=== PATIENT | female | born 1960 | race Caucasian/White ===

== ENCOUNTER → 2019-08-20 | Day surgery (SDC) | payer MEDICARE, OTHER ==
[~2019-08-20] MED LIST: ACETAMINOPHEN 325 MG TABLET PO PRN; ALBUTEROL SULFATE 2.5 MG/3 ML NEBU. NEB PRN; ATROPINE 0.5 MG/5 ML DISP.SYRIN. IV PRN; CLOP75TA57 PO; IV RINGERS SOLUTION,LACTATED 1,000 ML IV SCH; LIDOCAINE 2% PF Vial for OR 5 ML VIAL. ONE; LISI-338 PO; MIDAZOLAM HCL PF 2 MG/2 ML VIAL. IV PRN; ONDANSETRON PF 4 MG/2 ML VIAL. IV PRN; PANT40TA5 PO; PHENOL ORAL SPRAY 177ML BOTTLE. MM PRN; PROPOFOL 20 ML IV ONE; SIMV40TA18 PO; diphenhydrAMINE 50 MG/ML VIAL IV PRN
[2019-08-20 12:11] VITALS: BP 138/93
--- NOTE | 2019-08-23 16:06 | PATHOLOGY ---
[facility] Accession Number: [id number] . 01 Material submitted: . stomach - ANTRUM . 01 Clinical history: . GERD . 02 Diagnosis: Gastric biopsies, antrum: - Mild chronic gastritis. LBQ 08/23/2019 1116 Local . 02 Comment: Sections of the gastric antral biopsy show congestion and very mild chronic inflammation. A properly controlled immunoperoxidase stain for Helicobacter is negative for Helicobacter organisms. There is no evidence of malignancy. (JPM/db; 08/23/2019) . Special stain performed: Immunoperoxidase stain for Helicobacter on A1 . 02 Electronically signed: . Bridger Flores MD, Pathologist NPI- [id number] . 01 Gross description: . Received in formalin labeled "[place], Loralie, antrum BX," are 2 segments of shabazz soft tissue measuring 0.8 x 0.2 x 0.1 cm in aggregate dimensions and ranging from 0.2 to 0.6 cm in maximum dimension. The specimen is submitted entirely in cassette A1. (TSD; 08/20/2019) TOB/TOB 08/20/2019 2225 Local . 02 Pathologist provided ICD-10: K29.50 . 02 CPT . 099106, [id number] Specimen Comment: A courtesy copy of this report has been sent to [phone] Specimen Comment: [phone] Specimen Comment: Report sent to / DR PRESSLEY Performed at: 01 [facility] [address], [place] [id number] MD Pranav Moore MD Phone: [phone] Performed at: 02 [facility] [address], [place] [id number] MD Bridger Flores MD Phone: [phone]
== END ==
LOC: SURG 10:34
PROVIDERS: ATTEND Internal Medicine Gastroenterology
DX: R10.11 Right upper quadrant pain (principal); K21.0 Gastro-esophageal reflux disease with esophagitis; K29.50 Unspecified chronic gastritis without bleeding; K29.01 Acute gastritis with bleeding; K44.9 Diaphragmatic hernia without obstruction or gangrene; I25.10 Atherosclerotic heart disease of native coronary artery without angina pectoris; Z98.890 Other specified postprocedural states
CPT/HCPCS: 43239; 88305; 88342; J2704; 45380; J2001

== ENCOUNTER → 2019-12-03 | Day surgery (SDC) | payer MEDICARE, OTHER ==
[~2019-12-03] MED LIST changes: -ACETAMINOPHEN 325 MG TABLET PO PRN; -ALBUTEROL SULFATE 2.5 MG/3 ML NEBU. NEB PRN; -ATROPINE 0.5 MG/5 ML DISP.SYRIN. IV PRN; +IPRATRPIUM/ALBUTEROL 0.5/2.5MG 3 ML NEBU. NEB PRN; -LIDOCAINE 2% PF Vial for OR 5 ML VIAL. ONE; -MIDAZOLAM HCL PF 2 MG/2 ML VIAL. IV PRN; -PHENOL ORAL SPRAY 177ML BOTTLE. MM PRN; -PROPOFOL 20 ML IV ONE; +PROPOFOL 40 ML IV ONE; -diphenhydrAMINE 50 MG/ML VIAL IV PRN
[2019-12-03 12:22] VITALS: BP 132/78
--- NOTE | 2019-12-06 13:07 | PATHOLOGY ---
[facility] Accession Number: [id number] . 01 Material submitted: . sigmoid colon - SIGMOID POLYP . 01 Clinical history: . None provided . 02 Diagnosis: Colon biopsies, sigmoid colon polyps: - Hyperplastic polyps (2). . (JPM:surekha; 12/06/2019) QMS 12/06/2019 0907 Local . 02 Comment: There are no adenomatous changes or evidence of malignancy. . 02 Electronically signed: . Bridger Flores MD, Pathologist NPI- [id number] . 01 Gross description: . The specimen is received in formalin, labeled "[place], Loralie, sigmoid polyps" and consists of 2 fragments of pink-shabazz tissue measuring 0.4 x 0.3 cm and 0.4 x 0.2 cm which are entirely submitted in A1. (SDY; 12/03/2019) SYU/SYU 12/03/2019 1909 Local . 02 Pathologist provided ICD-10: K63.5 . 02 CPT . 523845 Specimen Comment: A courtesy copy of this report has been sent to [phone] Specimen Comment: [phone] Specimen Comment: Report sent to / DR PRESSLEY Performed at: 01 [facility] [address], [place], [place] [id number] MD Pranav Moore MD Phone: [phone] Performed at: 02 [facility] [address] [place], [place] [id number] MD Bridger Flores MD Phone: [phone]
== END ==
LOC: SURG 09:25
PROVIDERS: ATTEND Internal Medicine Gastroenterology
DX: Z12.11 Encounter for screening for malignant neoplasm of colon (principal); K63.5 Polyp of colon; K64.0 First degree hemorrhoids; K21.9 Gastro-esophageal reflux disease without esophagitis; I10 Essential (primary) hypertension; F32.9 Major depressive disorder, single episode, unspecified; E78.00 Pure hypercholesterolemia, unspecified; Z86.010 Personal history of colon polyps; Z80.0 Family history of malignant neoplasm of digestive organs
CPT/HCPCS: 45380; J2704; J7120

== ENCOUNTER → 2020-11-21 | Outpatient (CLI) | payer MEDICARE, OTHER ==
[2019-12-03 12:22] VITALS: BP 132/78
[~2020-11-21] MED LIST changes: -IPRATRPIUM/ALBUTEROL 0.5/2.5MG 3 ML NEBU. NEB PRN; -IV RINGERS SOLUTION,LACTATED 1,000 ML IV SCH; -LISI-338 PO; +LISI-517 PO; -ONDANSETRON PF 4 MG/2 ML VIAL. IV PRN; -PANT40TA5 PO; +PANT40TA6 PO; -PROPOFOL 40 ML IV ONE
--- NOTE | 2020-11-21 17:36 | RAD ---
EXAM: CT CHEST WITHOUT CONTRAST HISTORY: Tobacco use COMPARISON: None TECHNIQUE: Helical CT of the chest performed without contrast, low dose lung screening protocol. Cor onal and sagittal reformats were obtained. One or more of the following individualized dose reduction techniques were utilized for this examinat ion: 1. Automated exposure control 2. Adjustment of the mA and/or kV according to patient size 3. Use of iterative reconstruction technique. FINDINGS: Thyroid gland and thoracic inlet: Normal. Heart and great vessels: Heart is normal in size. There are coronary artery calcifications. No perica rdial effusion. The aorta is normal in caliber. There are mild aortic calcifications. Mediastinum and bladimir: There is no mediastinal or hilar lymphadenopathy. Lungs and pleura: There is moderate centrilobular emphysema. There is a 7 mm ovoid pulmonary nodule i n the left lower lobe abutting the major fissure (image 40, series 2). A 4 mm linear nodule in the ri ght lower lobe abutting the major fissure. There is mild airway wall thickening. No pleural effusion. Chest wall and axillae: No axillary lymphadenopathy. Breast tissue symmetric. Upper abdomen: 1.3 cm simple left renal cyst. Bones: There is a reverse S-shaped thoracic scoliosis. No acute osseous abnormality. IMPRESSION: 1. 7 mm ovoid perifissural nodule in the left lower lobe and 4 mm linear perifissural nodule in the right lower lobe. Lung-RADS: 2-Benign appearance. Recommend continued annual screening with low dose CT Chest in 12 months. 2. Moderate centrilobular emphysema. Electronically signed by: Radha Landin MD (11/21/2020 5:34 PM) [id number]
== END ==
LOC: CT 10:41
PROVIDERS: ATTEND Family Medicine
DX: Z12.2 Encounter for screening for malignant neoplasm of respiratory organs (principal); J43.2 Centrilobular emphysema; R91.8 Other nonspecific abnormal finding of lung field; Z72.0 Tobacco use
CPT/HCPCS: 71271